=== PATIENT | female | born 1975 | race African-American/Black ===

== ENCOUNTER → 2020-08-05 | Day surgery (SDC) | payer OTHER ==
[~2020-08-05] MED LIST: DEXT10CA10 PO; IV RINGERS,LACTATED 1000ML 1,000 ML IV SCH; LIDOCAINE 2% PF 5 ML VIAL. ONE; PROPOFOL 10 MG/ML (20ML) VIAL. IV ONE; SIMV20TA18 PO
[2020-08-05 09:48] VITALS: BP 115/56
== END | disposition home or self-care (01) ==
LOC: ENDOS 08:45
PROVIDERS: ATTEND Internal Medicine Gastroenterology
DX: R13.10 Dysphagia, unspecified (principal); K21.9 Gastro-esophageal reflux disease without esophagitis; E78.00 Pure hypercholesterolemia, unspecified; F41.9 Anxiety disorder, unspecified; F32.9 Major depressive disorder, single episode, unspecified; Z20.822 Contact with and (suspected) exposure to COVID-19; Z86.73 Personal history of transient ischemic attack (TIA), and cerebral infarction without residual deficits; Z98.51 Tubal ligation status; Z98.890 Other specified postprocedural states; Z79.899 Other long term (current) drug therapy; Z88.1 Allergy status to other antibiotic agents; Z88.2 Allergy status to sulfonamides
CPT/HCPCS: 43450; 81025; 87426; J2704

== ENCOUNTER → 2020-08-23 | Outpatient (CLI) | payer OTHER ==
[2020-08-05 09:48] VITALS: BP 115/56
[~2020-08-23] MED LIST changes: -IV RINGERS,LACTATED 1000ML 1,000 ML IV SCH; -LIDOCAINE 2% PF 5 ML VIAL. ONE; -PROPOFOL 10 MG/ML (20ML) VIAL. IV ONE
--- NOTE | 2020-08-23 14:48 | CARD ---
MR#: [id number] Date of Study: 08/23/2020 Ordering Physician: DIANNA JONES, Referring Physician: DIANNA JONES, Tech: Laura Cross, [facility] APPROVED REPORT EXAM: Two-dimensional and M-mode echocardiogram with Doppler and color Doppler. Other Information Quality : AverageHR: 68bpm INDICATION CVA/TIA RISK FACTORS Hyperlipidemia 2D DIMENSIONS RVDd2.7 (2.9-3.5cm)Left Atrium(2D)2.8 (1.6-4.0cm) IVSd0.7 (0.7-1.1cm)Aortic Root(2D)2.5 (2.0-3.7cm) LVDd4.5 (3.9-5.9cm)LVOT Diameter2.0 (1.8-2.4cm) PWd0.6 (0.7-1.1cm)LVDs3.1 (2.5-4.0cm) FS (%) 32.1 %SV57.2 ml LVEF(%)60.4 (>50%) Aortic Valve AoV [place].125.9cm/sAoV VTI23.6cm AO Peak GR.6.3mmHgLVOT [place].81.4cm/s LVOT VTI 17.00cmAO Mean GR.3mmHg MURALI (VMAX)1.62qt2ING (VTI)2.21cm2 Mitral Valve MV E Qbrlttur62.3cm/sMV DECEL [id number] MV A Qhnwkbtm46.9cm/sMV CUC19ok E/A Ratio1.4MVA (PHT)3.52cm2 TDI E/Lateral E'4.0E/Medial E'4.7 Pulmonary Valve PV Peak Fqegqtcl93.2cm/sPV Peak Grad.2mmHg Tricuspid Valve TR P. Ztmxsdnn755mn/sRAP FIDPHGVI3kgQb TR Peak Gr.13mxSgEWAJ24vpNe Pulmonary Vein S1 Ixjbvfqf20.8cm/sD2 Xfyxxqcp88.9cm/s PVa evirluhq710qplc LEFT VENTRICLE The left ventricle is normal size. There is normal left ventricular wall thickness. The left ventricu lar systolic function is normal. The Ejection Fraction is 55-60%. There is normal LV segmental wall m otion. The left ventricular diastolic function and filling is normal for age. RIGHT VENTRICLE The right ventricle is normal size. There is normal right ventricular wall thickness. The right ventr icular systolic function is normal. ATRIA The left atrium size is normal. The right atrium size is normal. The interatrial septum is intact wit h no evidence for an atrial septal defect or patent foramen ovale as noted on 2-D or Doppler imaging. Bubble study appears negative. AORTIC VALVE The aortic valve is thickened but opens well. Doppler and Color Flow revealed trace aortic regurgitat ion. Calculated aortic valve area is 2.48 cm2 with maximum pressure gradient of 8 mmHg and mean press ure gradient of 4 mmHg. There is no significant aortic valvular stenosis. MITRAL VALVE The mitral valve is normal in structure and function. There is no evidence of mitral valve prolapse. There is no mitral valve stenosis. Doppler and Color-flow revealed trace mitral regurgitation. TRICUSPID VALVE The tricuspid valve is normal in structure and function. Doppler and Color Flow revealed trace tricus pid regurgitation with an estimated PAP of 19 mmHg. There is no tricuspid valve stenosis. PULMONIC VALVE The pulmonic valve is not well visualized. Doppler and Color Flow revealed trace pulmonic valvular re gurgitation. GREAT VESSELS The aortic root is normal in size. The ascending aorta is normal in size. The IVC is normal in size a nd collapses >50% with inspiration. PERICARDIAL EFFUSION There is no evidence of significant pericardial effusion. Critical Notification Critical Value: No <Conclusion> The left ventricular systolic function is normal. The Ejection Fraction is 55-60%. There is normal LV segmental wall motion. Trace mitral regurgitation. Trace tricuspid regurgitation with an estimated PAP of 19 mmHg. There is no evidence of significant pericardial effusion. Bubble study appears negative for interatrial shunt. Signed by : Aramis Haider, Electronically Approved : 08/23/2020 14:47:50
== END ==
LOC: ECHO 09:09
PROVIDERS: ATTEND Family Medicine
DX: I63.9 Cerebral infarction, unspecified (principal)
CPT/HCPCS: 93306

== ENCOUNTER → 2021-07-25 | Outpatient (CLI) | payer OTHER ==
[2020-08-05 09:48] VITALS: BP 115/56
--- NOTE | 2021-07-25 10:43 | KCIC ---
EXAM: Brain MRI without contrast. HISTORY: Migraine. TECHNIQUE: Multiplanar, multisequence magnetic resonance imaging of the brain was performed without c ontrast. COMPARISON: None. FINDINGS: There is no restricted diffusion to suggest acute or subacute infarction. There is a tiny f ocus of increased signal on diffusion weighted images within the right frontal white matter due to T2 shine through artifact. There are extensive scattered areas of signal change throughout the cerebral white matter and a predo minantly periventricular and subcortical distribution. There is also a lesion within the left thalamu s. The imaging appearance favors demyelinating disease in a patient of this age. There is mild cerebr al volume loss. There is no hemorrhage. There is no mass effect or midline shift. The orbits are unremarkable. There is ethmoid sinus mucosal thickening. The mastoid air cells are clear. There are normal flow voids wit hin the cerebral vessels. IMPRESSION: Extensive areas of signal change throughout the cerebral white matter and within the left thalamus, the appearance of which in a patient of this age favors changes due to chronic demyelinati ng disease. Correlate with clinical history and possible CSF analysis if not previously performed. Po stcontrast imaging can be performed if there is concern for acute demyelination. Electronically signed by: Tisha Fierro MD (07/25/2021 10:41 AM) [facility]
== END ==
LOC: KCIC MRI 08:54
PROVIDERS: ATTEND Psychiatry & Neurology Neurology with Special Qualifications in Child Neurology
DX: R90.82 White matter disease, unspecified (principal); G93.89 Other specified disorders of brain; J32.2 Chronic ethmoidal sinusitis; G43.009 Migraine without aura, not intractable, without status migrainosus; I63.30 Cerebral infarction due to thrombosis of unspecified cerebral artery; R27.8 Other lack of coordination
CPT/HCPCS: 70551

== ENCOUNTER → 2021-08-02 | Outpatient (CLI) | payer OTHER ==
[2020-08-05 09:48] VITALS: BP 115/56
[~2021-08-02] MED LIST changes: +IOHEXOL 300 MG/ML 100ML VIAL. IV ONE
--- NOTE | 2021-08-03 11:39 | KCIC ---
CTA HEAD AND NECK W/WO CONTRAST History:Reason: Chronic migraines, CVA, dysmetria. / Spl. Instructions: 100cc Omni 300 / History: Technique: Noncontrast head CT was performed in correlation with this exam. After bolus of intravenou s contrast, volumetric CT data acquisition was acquired of the head and neck. Multiplanar reconstruct ion images to include MIP and 3-D reconstruction images are submitted. Exposure: One or more of the following individualized dose reduction techniques were utilized for thi s examination: 1. Automated exposure control 2. Adjustment of the mA and/or kV according to patient size 3. Use of iterative reconstruction technique. Comparison: MRI July 25, 2021 Any determination of stenosis is based on NASCET criteria. Noncontrast CT head: No intracranial hemorrhage. No mass effect. No hydrocephalus. Moderate foci of decreased attenuation within the hemispheric white matter predominantly periventricu lar, similar compared to prior MRI. Bilateral basal ganglia mineralization. Cardiac the cervical tons ils at the foramen magnum, unchanged. Imaged orbits are unremarkable. Imaged paranasal sinuses and mastoid air cells are clear. Head CTA: ICA: No stenosis, occlusion or aneurysm. MCA: No stenosis, occlusion or aneurysm. NATALIE: No stenosis, occlusion or aneurysm. 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 Basilar artery: No stenosis, occlusion or aneurysm. Distal vertebral arteries: No stenosis, occlusion or aneurysm. CT angiogram neck: Aortic arch: Conventional arch anatomy. Common carotid arteries: No stenosis, occlusion or dissection. Internal carotid arteries: No stenosis, occlusion or dissection. External carotid arteries: Patent Vertebral arteries: No stenosis, occlusion or dissection. Imaged lung apices are unremarkable. Soft tissues appear normal. Bones: Mild cervical spondylosis most prominent C6-C7. Impression: 1. No arterial stenosis or occlusion within the head or neck. 2. Nonspecific white matter changes, similar compared to prior MRI. Electronically signed by: Raul Zapata DO (08/03/2021 11:36 AM) [facility] [place]
== END ==
LOC: KCIC CT 14:10
PROVIDERS: ATTEND Psychiatry & Neurology Neurology with Special Qualifications in Child Neurology
DX: G23.8 Other specified degenerative diseases of basal ganglia (principal); G43.009 Migraine without aura, not intractable, without status migrainosus; I63.30 Cerebral infarction due to thrombosis of unspecified cerebral artery; R27.8 Other lack of coordination; M47.812 Spondylosis without myelopathy or radiculopathy, cervical region
CPT/HCPCS: 70487; Q9967

== ENCOUNTER → 2021-09-05 | Outpatient (CLI) | payer OTHER ==
[~2021-09-05] MED LIST changes: -IOHEXOL 300 MG/ML 100ML VIAL. IV ONE; +LIDOCAINE 1% Multi-Dose 20 ML VIAL. INJ ONE
[2021-09-05 10:45] VITALS: BP 111/61
--- NOTE | 2021-09-05 10:45 | NUR ---
PT ARRIVED AT 1045 POST LUMBAR PUNCTURE. VSS. PT DENIES PAIN AT THIS TIME. PT TO REMAIN FLAT FOR ONE HOUR POST PROCEDURE. WILL CONTINUE TO MONITOR.
[2021-09-05 11:00] VITALS: BP 108/64
[2021-09-05 11:15] VITALS: BP 111/71
[2021-09-05 11:43] LABS: CSF CLARITY CLEAR; CSF COLOR COLORLESS; CSF RBC COUNT 4 /cmm (Not Established); CSF WBC COUNT 0 /cmm (Not Established)
--- NOTE | 2021-09-05 11:50 | NUR ---
DISCHARGE INFORMATION REVIEWED, POST LUMBAR PUNCTURE. PT AMBULATED TO BATHROOM WITHOUT ANY COMPLAINTS. LOWER BACK BANDAID C/D/I. ALL QUESTIONS ANSWERED. PT TAKEN TO OUTPATIENT ENTRANCE VIA WHEELCHAIR. PATIENT'S FRIEND, RICHARD PICKED HER UP VIA PRIVATE VEHICLE.
--- NOTE | 2021-09-05 12:23 | RAD ---
EXAM: Fluoroscopic guided lumbar puncture. HISTORY: Abnormal brain MRI. Weakness and headaches. Concern for demyelinating disease. TECHNIQUE: The risks of the procedure were discussed with the patient and written and verbal consent was obtained. A timeout was performed. The patient was placed in a prone position on the fluoroscopic table and a suitable entry site into the central canal through the L4-L5 interlaminar space was iden tified with fluoroscopic guidance. This site was prepped and draped in sterile fashion. 1% lidocaine solution without epinephrine was i nfiltrated into the skin and deep soft tissues along the expected needle track. A 22-gauge spinal ne edle was advanced into the thecal sac with intermittent fluoroscopic guidance. A total of 16 mL CSF was collected and sent to the laboratory for requested analysis. The needle was removed and a sterile bandage was placed. The patient tolerated the procedure without complication. The patient was instructed to remain in a recumbent position for approximately 1 hour and was dischar ged in stable condition. A single fluoroscopic image was obtained. The total fluoroscopy time was 0.3 minutes. IMPRESSION: Successful fluoroscopically guided lumbar puncture. Electronically signed by: Tisha Fierro MD (09/05/2021 11:15 AM) [id number]
[2021-09-08 15:20] LABS: ALBUMIN,CSF 9 mg/dL (8-37); CSF IGG INDEX 2.5 (0.0-0.7); IGG,SERUM 1335 mg/dL (586-1602)
== END | disposition home or self-care (01) ==
LOC: RAD 09:34
PROVIDERS: ATTEND Psychiatry & Neurology Neurology with Special Qualifications in Child Neurology
DX: R51.9 Headache, unspecified (principal); G37.9 Demyelinating disease of central nervous system, unspecified; R93.0 Abnormal findings on diagnostic imaging of skull and head, not elsewhere classified; E78.00 Pure hypercholesterolemia, unspecified; F41.9 Anxiety disorder, unspecified; F32.9 Major depressive disorder, single episode, unspecified; Z86.73 Personal history of transient ischemic attack (TIA), and cerebral infarction without residual deficits; Z98.51 Tubal ligation status; Z98.890 Other specified postprocedural states; Z88.2 Allergy status to sulfonamides; Z88.1 Allergy status to other antibiotic agents
CPT/HCPCS: 62328; 82787; 82945; 83916; 87075; 87102; 87252; 89051; J3490; 62270